=== PATIENT | female | born 1990 | race Caucasian/White ===

== ENCOUNTER 2016-08-14 23:49 | Emergency (ER) | payer SELFPAY ==
--- NOTE | ~2016-08-14 | ER ---
PATIENT'S NAME: SIMON ADAMEA Elder [facility] AGE: 26 Y [address] ROOM: [place] [address] LOCATION: [facility] ADMIT DATE: 08/14/2016 ER/Outpatient Report DISCHARGE DATE: 08/15/2016 FAMILY PHYSICIAN: Nathen Frank MD ATTENDING PHYSICIAN: Prince Gordon Time of Arrival: 2355 hours. Time of Evaluation: 2355 hours. CHIEF COMPLAINT: Left ear pain. HISTORY OF PRESENT ILLNESS: The patient is a 26-year-old female who presents to the emergency department today with a chief complaint of left ear pain. She reports that she had some discharge from the left ear, it started over the past couple of days. She has had history of ear infections in the past. Denies any ear ache. No sore throat, no difficulty swallowing, no fevers, no chills, no nasal congestion or nasal drainage. PAST MEDICAL HISTORY: Depression. PAST SURGICAL HISTORY: Ear tubes. SOCIAL HISTORY: The patient denies any smoke exposure. Reports occasional alcohol use. Denies any illicit drug use. ALLERGIES: NO KNOWN DRUG ALLERGIES. MEDICATIONS: Lexapro. REVIEW OF SYSTEMS: All systems are reviewed by myself and are negative with the exception of those discussed in the HPI and past medical history. PHYSICAL EXAMINATION: VITAL SIGNS: Blood pressure 111/43, pulse 68, respiratory rate 18, temperature 97.8, oxygen saturation 98% on room air. GENERAL: The patient is a 26-year-old female, who appears her stated age, in no acute distress at this time. PATIENT'S NAME: SIMON ADAMEA Elder [facility] AGE: 26 Y [address] ROOM: [place] [address] LOCATION: [facility] ADMIT DATE: 08/14/2016 ER/Outpatient Report DISCHARGE DATE: 08/15/2016 FAMILY PHYSICIAN: Nathen Frank MD ATTENDING PHYSICIAN: Prince Gordon HEENT: Head: Normocephalic, atraumatic. Pupils are equal, round, and reactive to light and accommodation. Extraocular motions are intact. Left TM is with a yellow discharge noted. The TM appears otherwise unremarkable. The right TM appears without evidence of erythema. Oropharynx is clear. NECK: Supple. There is no nuchal rigidity. ABDOMEN: Soft, nontender, and nondistended. No rebound, rigidity, or guarding. MUSCULOSKELETAL: The patient moves all four extremities. SKIN: Warm and dry. There are no rashes or lesions noted. LABORATORY DATA AND X-RAYS: None. IMPRESSION: 1. Acute left otitis externa. 2. Initial visit. EMERGENCY DEPARTMENT COURSE: The patient was brought back to the examination room. Seen and evaluated by myself. History and physical are performed as described above. I have discussed results with the patient. It does appear she has a left otitis externa. I will place the patient on Cortisporin Otic. I have discussed return to care instructions including worsening symptoms or any other concerns to return to the emergency department as soon as possible. The patient is agreeable and without further questions at this time. DISPOSITION: The patient is discharged home in good condition. DO JULIO DC/abhijit /[id number] d: 08/15/16 0417 t: 08/16/16 1332, OUTPATIENT REPORT
== END 2016-08-15 00:03 | disposition disaster alternative care site (69) ==
LOC: GMED 23:49
DX: H60.92 Unspecified otitis externa, left ear (principal); F32.9 Major depressive disorder, single episode, unspecified; Z79.899 Other long term (current) drug therapy

== ENCOUNTER 2016-10-30 12:07 | Emergency (ER) | payer SELFPAY ==
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
== END 2016-10-30 13:11 | disposition disaster alternative care site (69) ==
LOC: GACC 12:07
DX: S60.221A Contusion of right hand, initial encounter (principal); F31.9 Bipolar disorder, unspecified; F41.9 Anxiety disorder, unspecified; F32.9 Major depressive disorder, single episode, unspecified; F43.10 Post-traumatic stress disorder, unspecified; Z98.890 Other specified postprocedural states; F12.10 Cannabis abuse, uncomplicated; F17.200 Nicotine dependence, unspecified, uncomplicated; Z79.899 Other long term (current) drug therapy; Z91.040 Latex allergy status; Z88.8 Allergy status to other drugs, medicaments and biological substances; W22.8XXA Striking against or struck by other objects, initial encounter